=== PATIENT | male | born 1995 | race Hispanic/Latino ===

== ENCOUNTER 2018-01-31 23:57 | Emergency (ER) | payer OTHER ==
[~2018-01-31] VITALS: Ht 167.6 cm; Wt 56.7 kg
[2018-01-31 23:57] VITALS: BP 118/61
[2018-02-01 00:41] LABS: BILIRUBIN,URINE NEGATIVE (NEGATIVE); UROBILINOGEN,URINE NORMAL (NEGATIVE)
[2018-02-01 00:41] LABS: BASOPHIL % 0.3 % (0.0-0.2); EOSINOPHIL % 0.5 % (0.0-5.0); HEMOGLOBIN 13.5 g/dL (13.9-16.3); LYMPHOCYTES # 1.8 10^3/uL (1.0-4.8); LYMPHOCYTES % 30.6 % (24.0-44.0); MEAN CELL HGB 30.7 pg (26-34); MEAN CELL HGB CONCENTRATION 34.1 g/dL (33-37); MEAN PLATELET VOLUME 10.6 fL (7.8-11.0); MONOCYTES # 0.6 10^3/uL (0.3-0.8); MONOCYTES % 10.9 % (5.0-12.0); NEUTROPHIL # 3.4 10^3/uL (1.8-7.7); NEUTROPHILS % 57.4 % (41.0-85.0); RED CELL DISTRIBUTION WIDTH 11.9 % (11.5-14.5); WHITE BLOOD CELL 5.9 10^3/uL (4.5-11.0)
--- NOTE | 2018-02-01 00:44 | ER.PDOC ---
General Chief Complaint: Requesting Medical Care Stated Complaint: ALCOHOL INTOXICATION Time seen by MD: 00:40 Source: family Exam Limitations: clinical condition, intoxication History of Present Illness Initial Comments etoh tonite,fell,no loc Occurred: just prior to arrival Where: home Severity: mild Injuries/Pain Location: head Context: Unknown Loss of Consciousness: No Loss of Consciousness Allergies: Coded Allergies: No Known Allergies (Unverified , 02/01/18) Past Medical History Medical History: no pertinent history Surgical History: no surgical history Family History Significant Family History: no pertinent family hx Review of Systems Constitutional: no symptoms reported Eyes: no symptoms reported Ears, Nose, Mouth, Throat: no symptoms reported Respiratory: no symptoms reported Cardiovascular: no symptoms reported Gastrointestinal: no symptoms reported Musculoskeletal: no symptoms reported Physical Exam General Appearance: No Apparent Distress, WD/WN, Lethargic Head: No Evidence of Injury Ears, Nose, Mouth, Throat: Hearing Grossly Normal Neck: Non-Tender Cardiovascular/Respiratory: Regular Rate, Rhythm Gastrointestinal: Normal Bowel Sounds Back: Normal Inspection Extremities: No Evidence of Injury Neurologic/Psychiatric: cloth bale header II-XII NML as Tested, No Motor/Sensory Deficits, Other (drunk) Skin: Normal Color Momo Coma Score Best Eye Response: (4) Open Spontaneously Best Verbal Response: (4) Confused Conversation Best Motor Response: (6) Obeys Commands Results/Orders Results/Orders Laboratory Tests Test 02/01/18 00:10 02/01/18 00:35 Urine Collection Type VOID Urine Color YELLOW (YELLOW) Urine Appearance CLEAR (CLEAR) Urine Bilirubin NEGATIVE MG/DL (NEGATIVE) Urine Ketones NEGATIVE (NEGATIVE) Urine Specific [place] 1.005 (1.005-1.035) Urine pH 6.5 (5.0-6.0) Urine Protein NEGATIVE (NEGATIVE) Urine Urobilinogen NORMAL (NEGATIVE) Urine Nitrate NEGATIVE (NEGATAIVE) Urine Leukocyte Esterase NEGATIVE (NEGATIVE) Urine Blood NEGATIVE (NEGATIVE) Urine Glucose NORMAL (NEGATIVE) Urine Opiates, Qualitative NEGATIVE ng/mL (CUT-OFF:300) Urine Methadone, Qualitative NEGATIVE ng/mL (CUT-OFF:300) Urine Amphetamine Qualitative NEGATIVE ng/mL (CUTOFF:1000) Urine Barbiturates, Qualitative NEGATIVE ng/mL (CUT-OFF:200) Urine Phencyclidine Screen NEGATIVE ng/mL (CUT-OFF:25) Urine MDMA (Ecstasy), Qualitative NEGATIVE ng/mL (CUT-OFF:300) Urine Benzodiazepines Screen NEGATIVE ng/mL (CUT-OFF:200) Urine Cocaine Qualitative NEGATIVE ng/mL (CUT-OFF:300) Ur Tetrahydrocannabinol (THC) Scrn NEGATIVE ng/mL (CUT-OFF:50) White Blood Count 5.9 10^3/uL (4.5-11.0) Red Blood Count 4.40 10^6/uL (4.50-5.90) Hemoglobin 13.5 g/dL (13.9-16.3) Hematocrit 39.6 % (37.0-53.0) Mean Corpuscular Volume 90.0 fL (78-100) Mean Corpuscular Hemoglobin 30.7 pg (26-34) Mean Corpuscular Hemoglobin Concent 34.1 g/dL (33-37) Red Cell Distribution Width 11.9 % (11.5-14.5) Platelet Count 242 10^3/uL (150-400) Mean Platelet Volume 10.6 fL (7.8-11.0) Neutrophils (%) (Auto) 57.4 % (41.0-85.0) Lymphocytes (%) (Auto) 30.6 % (24.0-44.0) Monocytes (%) (Auto) 10.9 % (5.0-12.0) Neutrophils # (Auto) 3.4 10^3/uL (1.8-7.7) Lymphocytes # (Auto) 1.8 10^3/uL (1.0-4.8) Monocytes # (Auto) 0.6 10^3/uL (0.3-0.8) Absolute Immature Granulocyte (auto 0.02 10^3 u/L (0-2) Eosinophils % 0.5 % (0.0-5.0) Basophils % 0.3 % (0.0-0.2) Basophils # 0.0 10^3/uL (0.0-0.1) Eosinophil Count 0.0 10^3/uL (0.0-0.2) Sodium Level 147 mmol/L (132-145) Potassium Level 4.2 mmol/L (3.6-5.2) Chloride Level 111.0 mmol/L (96-109) Carbon Dioxide Level 25.8 mmol/L (20.0-32) Anion Gap 14.4 Blood Urea Nitrogen 8 mg/dL (7-18) Creatinine 0.84 mg/dL (0.59-1.40) Estimated GFR () 139.6 (>/=60) BUN/Creatinine Ratio 9.0 Glucose Level 102 mg/dL (70-110) Calcium Level 8.1 mg/dL (8.4-10.5) Total Bilirubin 0.3 mg/dL (0.2-1.0) Aspartate Amino Transf (AST/SGOT) 18 U/L (0-35) Alanine Aminotransferase (ALT/SGPT) 27 U/L (12-78) Alkaline Phosphatase 105 U/L (50-136) Total Protein 7.1 g/dL (6.4-8.2) Albumin 3.9 g/dL (3.4-5.0) Globulin 3.2 Salicylates Level < 2.8 mg/dL (2.8-20.0) Acetaminophen Level < 2 ug/mL (10-30) Serum Alcohol 222 mg/dL (3-50) Percent Immature Gran (Cell Imm) 0.30 % (0.00-0.50) Administered Medications Medications (Trade) Dose Ordered Sig/Lisa Route PRN Reason Start Time Stop Time Status Last Admin Dose Admin Sodium Chloride 1,000 ml @ 100 mls/hr Q10H ONCE IV 02/01/18 01:00 02/01/18 10:59 02/01/18 01:25 Departure Time of Disposition: 01:41 Disposition: 01 HOME, SELF-CARE Impression: Primary Impression: Alcohol abuse Condition: Improved Referrals: PCP,UNKNOWN (PCP) PRIMARY CARE PROVIDER Duration or Time Spent with Pa: 45 BESSY GRAY MD Feb 01, 2018 00:44
[2018-02-01 00:45] VITALS: BP 146/87
--- NOTE | 2018-02-01 00:45 | NUR ---
RADIOLOGY NOTIFIED TIFFANIE SALEEM, OF ORDERS FOR CT C-SPINE
[2018-02-01 00:48] LABS: APPEARANCE,URINE CLEAR (CLEAR); UA COLOR YELLOW (YELLOW)
[2018-02-01] MEDS ORDERED: NS 1000ML 1,000 ML IV ONE (01:00)
[2018-02-01 01:14] LABS: ALANINE AMINOTRANSFERASE(ML) 27 U/L (12-78); ALKALINE PHOSPHATASE 105 U/L (50-136); ASPARTATE AMINO TRANSFERASE 18 U/L (0-35); CALCIUM 8.1 mg/dL (8.4-10.5); CARBON DIOXIDE 25.8 mmol/L (20.0-32); GLUCOSE 102 mg/dL (70-110)
--- NOTE | 2018-02-01 01:15 | DIREP ---
PROCEDURE:CT MAXILLOFACIAL W/O CONTRAST COMPARISON:None. INDICATIONS:FALL TECHNIQUE:Axial CT images were created without intravenous contrast. Sagittal and coronal reformatted images are provided. FINDINGS: ORBITS:The globe is intact. No extraocular muscle entrapment is identified. No orbital wall fracture is identified. FACIAL BONES:No fracture. NASAL BONES :No fracture MAXILLA/MANDIBLE:Periapical lucencies surrounding left maxillary incisor as well as left mandibular molar suggest periodontal disease. SINUSES:No air fluid level is seen. No mucosal thickening. Surrounding bone structures are intact. SOFT TISSUES:No significant hematoma. Question soft tissue swelling overlying the midline mandible.. CONCLUSION: 1. No facial fracture seen. 2. Findings suggesting periodontal disease. 3. Questionable soft tissue swelling overlying the midline mandible, correlate with site of injury. Dictated by: Nathanael Harris M.D. on 02/01/2018 at 01:10 AM
--- NOTE | 2018-02-01 01:17 | DIREP ---
PROCEDURE:CT HEAD OR BRAIN W/O CONTRAST COMPARISON:None. INDICATIONS:FALL TECHNIQUE:CT images were created without intravenous contrast. FINDINGS: VENTRICLES:The ventricles are normal in size and configuration. CEREBRUM:Normal cerebral morphology with appropriate marte white matter differentiation. CEREBELLUM:Negative. BRAINSTEM:Negative. BASAL CISTERNS:Negative. HEMORRHAGE:No MASS LESION:No ACUTE INFARCT:No SKULL:Normal. SINUSES:Normal. OTHER:None CONCLUSION:No acute intracranial abnormality. Negative head CT. Dictated by: Nathanael Harris M.D. on 02/01/2018 at 01:13 AM
[2018-02-01 01:45] VITALS: BP 113/50
--- NOTE | 2018-02-01 02:05 | DIREP ---
PROCEDURE: CT SPINE CERVICAL W/O COMPARISON:None. INDICATIONS:FALL FINDINGS: ALIGNMENT:Normal. VERTEBRAE:Irregularity to the infra clear endplate of C6 likely developmental or chronic, configuration would be unusual for acute fracture. PARASPINAL AREA:Normal. OTHER:No additional findings. CERVICAL DISC LEVELS C2-C3:Normal. C3-C4:Normal. C4-C5:Normal. C5-C6:Normal. C6-C7:Disc bulge contributing to mild central canal stenosis. C7-T1:Normal. CONCLUSION: 1. No acute fracture or subluxation demonstrated. 2. Irregularity of inferior endplate C6 may be degenerative as there is associated disc bulge at this level contributing to mild central canal stenosis. Dictated by: Nathanael Harris M.D. on 02/01/2018 at 01:59 AM
[2018-02-01 02:25] VITALS: BP 113/50
== END 2018-02-01 02:19 | disposition home or self-care (01) ==
LOC: ER 23:57
DX: F10.10 Alcohol abuse, uncomplicated (principal); Y90.8 Blood alcohol level of 240 mg/100 ml or more; W19.XXXA Unspecified fall, initial encounter; Y93.89 Activity, other specified; Y92.89 Other specified places as the place of occurrence of the external cause; Y99.8 Other external cause status
CPT/HCPCS: 36415; 70450; 70486; 72125; 80053; 80299; 80307; 81002; 85025; 99284; G0481; G0482; G0483

== ENCOUNTER 2020-08-29 02:00 | Inpatient (IN) | payer OTHER ==
[2020-08-29] VITALS (24 sets, daily range): BP systolic 118–160; BP diastolic 70–93
[~2020-08-29] VITALS: Ht 167.6 cm; Wt 51.5 kg
--- NOTE | 2020-08-29 02:00 | NUR ---
On arrival, patient has an 18 gauge IV to left AC, NS bolus infusing.
--- NOTE | 2020-08-29 02:00 | NUR ---
Patient presents to ED via EMS for C/O altered mental status. EMS state "family called to report patient was possibly drunk and had drugs in his system. Patient was somewhat calm and when we got 5 minutes from the house he started acting different, getting physically combative, we then gave him 4 mg of Zofran and proceeded to intubate patient." Patient received 200 mg Ketamine, 5 mg Versed, 10 mg Vecuronium, 100 mg Fentanyl.
[2020-08-29] MEDS ORDERED: NS 1000ML 1,000 ML STA (02:05)
--- NOTE | 2020-08-29 02:15 | NUR ---
NS bolus completed from EMS transport.
--- NOTE | 2020-08-29 02:15 | NUR ---
16 Vietnamese NG placed in patient's right nare, placement confirmed with auscultation and verified by X-ray.
[2020-08-29] MEDS ORDERED: NS 50ML 50 ML IV ONE (02:16)
[2020-08-29] MEDS ORDERED: NS 1000ML 1,000 ML ONE (02:21)
[2020-08-29 02:23] LABS: BASOPHIL % 0.6 % (0.0-0.2); EOSINOPHIL # 0.1 10^3/uL (0.0-0.2); EOSINOPHIL % 1.2 % (0.0-5.0); LYMPHOCYTES # 2.09 10^3/uL1 (1.0-4.8); LYMPHOCYTES % 40.8 % (24.0-44.0); MEAN CORP HGB 30.4 pg (26-34); MONOCYTES # 0.4 10^3/uL (0.3-0.8); MONOCYTES % 6.8 % (5.0-12.0); NEUTROPHIL # 2.6 10^3/uL (1.8-7.7); NEUTROPHILS % 50.4 % (41.0-85.0); PLATELET COUNT 207 10^3/uL (150-400); RED CELL DISTRIBUTION WIDTH 11.6 % (11.5-14.5)
[2020-08-29] MEDS ORDERED: VERSED IV ONE (02:30)
[2020-08-29] MEDS ORDERED: NS IV ONE (02:30)
--- NOTE | 2020-08-29 02:31 | NUR ---
RN was able to initiate 18g IV to R forearm. Pt presented with IV to L forearm. RN was able to initiate jon catheter. Blood samples and urine were collected and sent to lab. [facility]
[2020-08-29 02:46] LABS: BILIRUBIN,URINE NEGATIVE (NEGATIVE); UA COLOR YELLOW
[2020-08-29 02:47] LABS: UROBILINOGEN,URINE 0.2 E.U./dL (0.2)
[2020-08-29 02:48] LABS: ALANINE AMINOTRANSFERASE(ML) 27 U/L (12-78); ALKALINE PHOSPHATASE 106 U/L (50-136); ASPARTATE AMINO TRANSFERASE 23 U/L (0-35); CALCIUM 7.6 mg/dL (8.4-10.5); CARBON DIOXIDE 20.9 mmol/L (20.0-32); GLUCOSE 120 mg/dL (70-110)
--- NOTE | 2020-08-29 02:48 | DIREP ---
PROCEDURE:CHEST 1 VIEW COMPARISON:None. INDICATIONS:check ett FINDINGS: LUNGS/PLEURA:Endotracheal tube terminates approximately 4 cm from the alicia. No focal consolidation, pleural effusion, or pneumothorax is seen. VASCULATURE:Normal. Unremarkable pulmonary vasculature. CARDIAC:Normal. No cardiac silhouette abnormality or cardiomegaly. MEDIASTINUM:Normal. No visible mass or adenopathy. BONES:Normal. No fracture or visible bony lesion. OTHER:OG tube with tip and side hole projecting over the left upper quadrant of the abdomen. Overlying EKG leads. CONCLUSION: Support tubes and catheters in satisfactory position. No acute cardiopulmonary process is identified. Dictated by: Derick Becker M.D. On 08/29/2020 at 02:45 AM
--- NOTE | 2020-08-29 03:02 | DIREP ---
PROCEDURE:CT HEAD OR BRAIN W/O CONTRAST COMPARISON:[facility], CT, CT HEAD BRAIN W/O CONTRAST, 02/01/2018, 00:19 AM. INDICATIONS:AMS TECHNIQUE:CT images were created without intravenous contrast. FINDINGS: VENTRICLES:The ventricles are normal in size and configuration. CEREBRUM:Normal cerebral morphology with appropriate marte white matter differentiation. CEREBELLUM:Negative. BRAINSTEM:Negative. BASAL CISTERNS:Negative. HEMORRHAGE:No MASS LESION:No ACUTE INFARCT:No SKULL:Normal. SINUSES:Mild mucosal thickening in the ethmoid air cells. No air-fluid level. OTHER:None CONCLUSION:No acute intracranial abnormality or significant interval change. Dictated by: Derick Becker M.D. on 08/29/2020 at 02:59 AM
--- NOTE | 2020-08-29 03:16 | ER.PDOC ---
General Chief Complaint: Altered Mental Status Stated Complaint: INTOXICATED Time seen by MD: 02:10 Source: EMS Exam Limitations: clinical condition History of Present Illness Initial Comments 25 Y M no PMH, intubated by EMS after call out for drunken beligerence Allergies: Coded Allergies: No Known Allergies (Unverified , 02/01/18) Home Meds No Active Prescriptions or Reported Meds Past Medical History Medical History: no pertinent history Surgical History: no surgical history Social History Alcohol Use: heavy Drug Use: Meth Review of Systems All Other Systems: Reviewed and Negative Physical Exam General Appearance: obtunded HEENT: no apparent trauma, no nystagmus, PERRL, ENT inspection nml, pharynx nml, other (intubated) Neck: supple, non-tender, no carotid bruit Respiratory: breath sounds nml CVS: reg rate & rhythm, heart sounds nml Abdomen: no distention Skin: color nml, no rash, warm/dry Extremities: non-tender, nml ROM, no pedal edema Comments exam limited due to clinical condition Results/Orders Results/Orders Orders - COLLIN RENDON MD Cbc With Auto Diff (08/29/20 02:05) Comprehensive Metabolic Panel (08/29/20 02:05) PT (08/29/20 02:05) Xr Chest 1v (08/29/20 02:05) Ct Head Wo Contrast (08/29/20 02:05) Urinalysis (08/29/20 02:05) Ekg-Routine (08/29/20 02:05) Troponin I (08/29/20 02:05) 0.9 % Sodium Chloride (Ns 1000ml) (08/29/20 02:05) Midazolam Hcl (Versed) (08/29/20 02:30) Alcohol(Ml) (08/29/20 02:05) 0.9 % Sodium Chloride (Ns 50ml) (08/29/20 02:16) 0.9 % Sodium Chloride (Ns 1000ml) (08/29/20 02:21) Arterial Blood Gas (08/29/20 02:30) Drug Scrn Med W Confirmation (08/29/20 02:30) Restraint(S) Ordered (08/29/20 03:26) Vital Signs Date Time Temp Pulse Resp B/P (MAP) Pulse Ox O2 Delivery O2 Flow Rate FiO2 08/29/20 03:10 76 12 156/88 (110) 100 08/29/20 02:08 76 12 99 08/29/20 02:08 76 12 118/71 (87) 99 08/29/20 02:08 76 12 Administered Medications Medications (Trade) Dose Ordered Sig/Lisa Route PRN Reason Start Time Stop Time Status Last Admin Dose Admin Midazolam HCl 50 mg/Sodium Chloride 50 ml @ 0 mls/hr ONCE IV 08/29/20 02:30 08/29/20 02:57 DC 08/29/20 02:27 5 MLS/HR Sodium Chloride 1,000 ml @ 0 mls/hr Q0M STAT IV 08/29/20 02:05 08/29/20 02:11 DC 08/29/20 02:27 1,000 MLS/HR Laboratory Tests Test 08/29/20 02:10 White Blood Count 5.1 10^3/uL (4.5-11.0) Red Blood Count 4.44 10^6/uL (4.50-5.90) L Hemoglobin 13.5 g/dL (13.9-16.3) L Hematocrit 39.4 % (37.0-53.0) Mean Corpuscular Volume 88.7 fL (78-100) Mean Corpuscular Hemoglobin 30.4 pg (26-34) Mean Corpuscular Hemoglobin Concent 34.3 g/dL (33-36.5) Red Cell Distribution Width 11.6 % (11.5-14.5) Platelet Count 207 10^3/uL (150-400) Mean Platelet Volume 10.6 fL (7.8-11.0) Neutrophils (%) (Auto) 50.4 % (41.0-85.0) Lymphocytes (%) (Auto) 40.8 % (24.0-44.0) Monocytes (%) (Auto) 6.8 % (5.0-12.0) Neutrophils # (Auto) 2.6 10^3/uL (1.8-7.7) Lymphocytes # (Auto) 2.09 10^3/uL1 (1.0-4.8) Monocytes # (Auto) 0.4 10^3/uL (0.3-0.8) Absolute Immature Granulocyte (auto 0.01 10^3 u/L (0-2) Absolute Eosinophils (auto) 0.1 10^3/uL (0.0-0.2) Immature Granulocytes % 0.20 % (0.00-0.50) Eosinophils % 1.2 % (0.0-5.0) Basophils % 0.6 % (0.0-0.2) H Basophils # 0.0 10^3/uL (0.0-0.1) Prothrombin Time 10.5 SEC (9.6-12.0) Prothrombin Time INR (Non-Therap) 1.0 Urine Collection Type CCMS Urine Color YELLOW Urine Appearance CLEAR Urine Bilirubin NEGATIVE (NEGATIVE) Urine Ketones NEGATIVE (NEGATIVE) Urine Specific [place] 1.010 (1.005-1.030) Urine pH 5.5 (4.5-8.0) Urine Protein NEGATIVE (NEGATIVE) Urine Urobilinogen 0.2 E.U./dL (0.2) Urine Nitrate NEGATIVE (NEGATIVE) Urine Leukocyte Esterase NEGATIVE (NEGATIVE) Urine Glucose (Auto)(UA) NEGATIVE (NEGATIVE) Urine Blood MODERATE (NEGATIVE) H Urine RBC 0-2 RBC/HPF (NONE SEEN) Urine WBC NONE SEEN WBC/HPF (0-2) Urine Squamous Epithelial Cells FEW #/HPF (FEW) Urine Bacteria RARE (NONE SEEN) Sodium Level 148 mmol/L (132-145) H Potassium Level 3.2 mmol/L (3.6-5.2) L Chloride Level 114.0 mmol/L (96-109) H Carbon Dioxide Level 20.9 mmol/L (20.0-32) Anion Gap 16.3 Blood Urea Nitrogen 11 mg/dL (7-18) Creatinine 0.93 mg/dL (0.59-1.40) Estimated GFR () 120.8 (>/=60) Est GFR (CKD-EPI)(Non-Afr Singaporean) 99.8 (>/=60) BUN/Creatinine Ratio 11.0 Glucose Level 120 mg/dL (70-110) H Calcium Level 7.6 mg/dL (8.4-10.5) L Total Bilirubin 0.2 mg/dL (0.2-1.0) Aspartate Amino Transferase (AST) 23 U/L (0-35) Alanine Aminotransferase (ALT) 27 U/L (12-78) Alkaline Phosphatase 106 U/L (50-136) Troponin I < 0.02 ng/mL (0.00-0.05) Total Protein 7.2 g/dL (6.4-8.2) Albumin 4.1 g/dL (3.4-5.0) Globulin 3.1 Albumin/Globulin Ratio 1.322 Urine Opiates Screen NEGATIVE (c/o300ng/mL) Urine Methadone Screen NEGATIVE (c/o300ng/mL) Urine Barbiturates Screen NEGATIVE (c/o200ng/mL) Urine Phencyclidine Screen NEGATIVE (c/o 25ng/mL) Ur Amphetamine/Methamphetamine NEGATIVE ([id number]/mL) Urine MDMA Screen (Ecstasy) NEGATIVE (c/o300ng/mL) Urine Benzodiazepines Screen PRESUMPTIVE POSITIVE Urine Cocaine Metabolite Screen NEGATIVE (c/o300ng/mL) Ur Tetrahydrocannabinol (THC) Scrn PRESUMPTIVE POSITIVE (c/o Serum Alcohol 246 mg/dL (0-50) H EKG/XRAY/CT/US EKG: NSR, SC, QRS, no ST T wave changes XRAY: chest XRAY Comments: ETT appropriate depth ER DEPART Departure Time of Disposition: 04:19 Disposition: 09 ADMITTED INPATIENT Impression: Primary Impression: Alcohol intoxication Condition: Improved Referrals: PCP,UNKNOWN (PCP) PRIMARY CARE PROVIDER Scripts No Active Prescriptions or Reported Meds Duration or Time Spent with Pa: 40m Critical Care Note Comments We checked his ETT placement, started sedation, managed his vent settings, gave IVF for resusciation 35 min COLLIN RENDON MD Aug 29, 2020 03:16
--- NOTE | 2020-08-29 03:29 | PCM.EKG ---
[facility] Test Date: 2020-08-29 Test Time: 03:21:06 Pat Name: ULYSSES PANCHAL Department: Patient ID: [id number] Room: Gender: M Director Of Advertising Sales: ITA : 1995 Requested By: COLLIN RENDON Order Number: [id number] Reading MD: Measurements Intervals [place] Rate: 73 P: 15 UT: 158 QRS: 82 QRSD: 103 T: 62 QT: 405 QTc: 447 Interpretive Statements Sinus rhythm ST elev, probable normal early repol pattern No previous ECG available for comparison Please click the below link to view image of tracing.
--- NOTE | 2020-08-29 03:55 | NUR ---
N2N given to Mague LEOS.
--- NOTE | 2020-08-29 04:16 | NUR ---
Lazaro RN was called to verify the order placed by Dr. Kunz regarding propofol. Propofol was drawn from [facility] by this RN and initiated by Thor Pascual Supervisor prior to pt leaving the ED.
[2020-08-29] MEDS: DIPRIVAN IV PRN ×2 (04:30→08:19)
[2020-08-29 05:23] LABS: ABG PCO2 43.5 mmHg (35.0-45.0); ABG PH 7.255 (7.350-7.450); HCO3act 18.9 mmol/L (22.0-26.0); pO2 241.1 mmHg (80.0-100.0)
[2020-08-29] MEDS ORDERED: ZOFRAN ONE (09:49)
[2020-08-29] MEDS ORDERED: ZOFRAN IV STA (09:59)
--- NOTE | 2020-08-29 10:08 | NUR ---
AMA Pt requesting to leave against medical advice stating "I hate hospitals get me the f out of here." Educated pt on importance of staying to get monitored, pt declined. Dr. Kunz notified. AMA form signed at this time. Pt ambulated off unit. No s/s of distress noted.
--- NOTE | 2020-08-29 11:36 | PCM.HP ---
History of Present Illness Hx of Present Illness 25 Y M no PMH, intubated by EMS after call out for drunken belligerence work up in the ER positive for benzodiazepines, cannabis, and EtOH. negative for acetaminophen and otherwise unremarkable accepted to the ICU for extubation in the AM when patient passes SBT PROCEDURE:CHEST 1 VIEW COMPARISON:None. INDICATIONS:check ett CONCLUSION: Support tubes and catheters in satisfactory position. No acute cardiopulmonary process is identified. PROCEDURE:CT HEAD OR BRAIN W/O CONTRAST COMPARISON:[facility], CT, CT HEAD BRAIN W/O CONTRAST, 02/01/2018, 00:19 AM. INDICATIONS:AMS CONCLUSION:No acute intracranial abnormality or significant interval change. Travel History EBOLA RISK:Travel to/contact w: No Review of Systems Constitutional: No: Fever, Chills, Sweats, Weakness, Malaise, Other Eyes: No: Pain, Vision change, Conjunctivae inflammation, Eyelid inflammation, Other, Redness ENT: No: Ear pain, Ear discharge, Nose pain, Nose discharge, Nose congestion, Mouth pain, Mouth swelling, Throat pain, Throat swelling, Other Respiratory: No: Cough, Dry, Shortness of breath, SOB with excertion, Wheezing, Hemoptysis, Pleuritic Pain, Sputum, Wheezing, Other Cardiovascular: No: Chest Pain, Palpitations, Orthopnea, Paroxysmal Noc. Dyspnea, Edema, Lt Headedness, Other Gastrointestinal: No: Nausea, Vomiting, Abdominal Pain, Diarrhea, Constipation, Melena, Hematochezia, Other Genitourinary: No Dysuria, No Frequency, No Incontinence, No Hematuria, No Retention, No Other Musculoskeletal: No: other, neck pain, shoulder pain, arm pain, back pain, hand pain, leg pain, foot pain Skin: No: Rash, Lesions, Jaundice, Bruising, Other Neurological: No: Weakness, Numbness, Incoordination, Change in speech, Confusion, Seizures, Other Other Limited by intubation and sedation, obtained by EMS, family and medical record Allergies: Coded Allergies: No Known Allergies (Unverified , 02/01/18) No Active Prescriptions or Reported Meds VTE VTE Risk Total Score: 5 VTE Risk Score VTE Risk: Score 0-1 = Low Risk (Aggressive mobilization; early ambulation; no VTE prophylaxis required) Score 2: Moderate Risk (Intermittent/Pneumatic Compression Device OR Lovenox/Heparin/Coumadin) Score 3-4: High Risk (Intermittent/Pneumatic Compression Device AND Lovenox/Heparin/Coumadin) Score > or =5: Highest Risk (Intermittent/Pneumatic Compression Device AND Lovenox/Heparin/Coumadin) Mechanical device ordered: Yes VTE VTE Present on Admission: No Currently receiving anticoagul: No VTE Risk Total Score: 5 Exam Vital Signs Vital Signs Date Time Temp Pulse Resp B/P (MAP) Pulse Ox O2 Delivery O2 Flow Rate FiO2 08/29/20 10:27 84 16 100 21 08/29/20 10:08 Room Air 08/29/20 10:00 129/70 (89) 08/29/20 08:45 98.4 General Appearance: Other (Intubated and sedated) HEENT: Atraumatic, PERRLA Respiratory: Clear to auscultation, Normal air movement Cardiovascular: Regular rate Abdominal: Normal bowel sounds, Soft, No tenderness Skin: No rash, No breakdown Neuro: Normal tone, Sensation intact Psych/Mental Status: Other (intubated and sedated) Assessment/Plan Assessment/Plan Assessment/Plan 25-year-old male with no significant past medical history who presented with alcohol intoxication and was combative with EMS when they were called to the scene alcohol level is in the 200s and he was intubated for severe intoxication with combativeness with EMS he is accepted to the ICU for extubation in the a.m. when appropriate Severe alcohol intoxication: Currently intubated and sedated will allow alcohol to clear his system and then perform spontaneous breathing trial Endotracheal intubation: We will wean sedation in the a.m. for spontaneous breathing trial and extubate Prophylaxis SCDs Full code WINNIE GOLDBERG MD Aug 29, 2020 11:36
--- NOTE | 2020-08-29 11:40 | NUR ---
Extubation Dr. Kunz, this nurse, Edith RT and Td Lau RN at this side for extubation. Pt extubated at this time. Pt on room air, O2 sat- 100%.
--- NOTE | 2020-08-29 22:58 | PRM.DC ---
Discharge Summary Date of Discharge: Aug 29, 2020 Time of Request to Discharge: 11:11 Hospital Course 25 Y M no PMH, intubated by EMS after call out for drunken belligerence work up in the ER positive for benzodiazepines, cannabis, and EtOH. negative for acetaminophen and otherwise unremarkable accepted to the ICU for extubation in the AM when patient passes SBT PROCEDURE:CHEST 1 VIEW COMPARISON:None. INDICATIONS:check ett CONCLUSION: Support tubes and catheters in satisfactory position. No acute cardiopulmonary process is identified. PROCEDURE:CT HEAD OR BRAIN W/O CONTRAST COMPARISON:[facility], CT, CT HEAD BRAIN W/O CONTRAST, 02/01/2018, 00:19 AM. INDICATIONS:AMS CONCLUSION:No acute intracranial abnormality or significant interval change. Patient was successfully weaned off the ventilator and passed successful breathing trial in the morning after alcohol cleared his system immediately after extubation he demanded to leave despite warnings of potential adverse consequences he continued to demand to leave immediately rather than wait a few hours of observation after extubation he has medical decision-making capacity and signed AMA form taken home by sister and significant other General: Alert, Oriented X3, No acute distress HEENT: Atraumatic, PERRLA Lungs: Clear to auscultation, Normal air movement Heart: Regular rate Abdomen: Soft, No tenderness Extremities: No clubbing, No cyanosis Skin: No rashes, No breakdown Neuro: Normal gait, Normal speech, Strength at 5/5 X4 ext, Normal tone, Sensation intact, Cranial nerves 3-12 NL Psych/Mental Status: Mental status NL, Other (Mood is dysphoric) No Active Prescriptions or Reported Meds Sepsis Evaluation @ Discharge Course Duration or Total Time Spent w: 40m Vitals & review Data Vital Sign - Last 24 Hours 08/29/20 08/29/20 08/29/20 08/29/20 02:00 02:08 02:08 02:08 Pulse 87 76 76 76 Resp 18 12 12 12 B/P (MAP) 118/71 (87) Pulse Ox 99 99 99 FiO2 40 08/29/20 08/29/20 08/29/20 08/29/20 03:10 03:35 04:00 04:30 Temp 96.3 Pulse 76 87 81 81 Resp 12 18 12 16 B/P (MAP) 156/88 (110) 153/70 (97) 142/84 (103) Pulse Ox 100 100 100 100 O2 Delivery Vent FiO2 40 08/29/20 08/29/20 08/29/20 08/29/20 04:30 04:30 04:30 04:30 Pulse 81 Resp 19 16 Pulse Ox 100 100 O2 Delivery Mechanical Ventilator Mechanical Ventilator FiO2 28 28 08/29/20 08/29/20 08/29/20 08/29/20 04:45 05:00 05:15 05:30 Pulse 76 77 78 76 B/P (MAP) 124/72 (89) 129/79 (96) 136/75 (95) 140/87 (104) Pulse Ox 100 100 100 100 08/29/20 08/29/20 08/29/20 08/29/20 05:45 06:00 06:42 07:00 Temp 97.6 Pulse 74 75 84 B/P (MAP) 138/89 (105) 131/81 (98) 129/76 (93) Pulse Ox 100 100 99 08/29/20 08/29/20 08/29/20 08/29/20 07:15 07:30 07:45 08:00 Pulse 84 84 84 82 B/P (MAP) 126/80 (95) 129/79 (96) 129/76 (93) 132/75 (94) Pulse Ox 99 99 98 99 08/29/20 08/29/20 08/29/20 08/29/20 08:15 08:30 08:45 09:00 Temp 98.4 Pulse 86 86 94 81 B/P (MAP) 128/76 (93) 144/93 (110) 160/76 (104) 127/73 (91) Pulse Ox 98 100 100 99 08/29/20 08/29/20 08/29/20 08/29/20 09:15 09:20 09:31 09:45 Pulse 84 80 89 81 Resp 20 B/P (MAP) 123/76 (92) 151/90 (110) 125/81 (96) Pulse Ox 98 99 100 100 FiO2 28 08/29/20 08/29/20 08/29/20 08/29/20 09:46 10:00 10:08 10:27 Pulse 81 77 77 84 Resp 20 16 16 B/P (MAP) 129/70 (89) Pulse Ox 100 100 100 100 O2 Delivery Room Air FiO2 28 21 Intake and Output 08/29/20 07:00 Output Total 750 ml Balance -750 ml Laboratory Tests Test 08/29/20 02:10 08/29/20 03:11 White Blood Count 5.1 10^3/uL Red Blood Count 4.44 10^6/uL Hemoglobin 13.5 g/dL Hematocrit 39.4 % Mean Corpuscular Volume 88.7 fL Mean Corpuscular Hemoglobin 30.4 pg Mean Corpuscular Hemoglobin Concent 34.3 g/dL Red Cell Distribution Width 11.6 % Platelet Count 207 10^3/uL Mean Platelet Volume 10.6 fL Neutrophils (%) (Auto) 50.4 % Lymphocytes (%) (Auto) 40.8 % Monocytes (%) (Auto) 6.8 % Neutrophils # (Auto) 2.6 10^3/uL Lymphocytes # (Auto) 2.09 10^3/uL1 Monocytes # (Auto) 0.4 10^3/uL Absolute Immature Granulocyte (auto 0.01 10^3 u/L Absolute Eosinophils (auto) 0.1 10^3/uL Immature Granulocytes % 0.20 % Eosinophils % 1.2 % Basophils % 0.6 % Basophils # 0.0 10^3/uL Prothrombin Time 10.5 SEC Prothrombin Time INR (Non-Therap) 1.0 Urine Collection Type CCMS Urine Color YELLOW Urine Appearance CLEAR Urine Bilirubin NEGATIVE Urine Ketones NEGATIVE Urine Specific Procious 1.010 Urine pH 5.5 Urine Protein NEGATIVE Urine Urobilinogen 0.2 E.U./dL Urine Nitrate NEGATIVE Urine Leukocyte Esterase NEGATIVE Urine Glucose (Auto)(UA) NEGATIVE Urine Blood MODERATE Urine RBC 0-2 RBC/HPF Urine WBC NONE SEEN WBC/HPF Urine Squamous Epithelial Cells FEW #/HPF Urine Bacteria RARE Sodium Level 148 mmol/L Potassium Level 3.2 mmol/L Chloride Level 114.0 mmol/L Carbon Dioxide Level 20.9 mmol/L Anion Gap 16.3 Blood Urea Nitrogen 11 mg/dL Creatinine 0.93 mg/dL Estimated GFR () 120.8 Est GFR (CKD-EPI)(Non-Afr Taiwanese) 99.8 BUN/Creatinine Ratio 11.0 Glucose Level 120 mg/dL Calcium Level 7.6 mg/dL Total Bilirubin 0.2 mg/dL Aspartate Amino Transf (AST/SGOT) 23 U/L Alanine Aminotransferase (ALT/SGPT) 27 U/L Alkaline Phosphatase 106 U/L Troponin I < 0.02 ng/mL Total Protein 7.2 g/dL Albumin 4.1 g/dL Globulin 3.1 Albumin/Globulin Ratio 1.322 Urine Opiates Screen NEGATIVE Urine Methadone Screen NEGATIVE Acetaminophen Level < 3 ug/mL Urine Barbiturates Screen NEGATIVE Urine Phencyclidine Screen NEGATIVE Ur Amphetamine/Methamphetamine NEGATIVE Urine MDMA Screen (Ecstasy) NEGATIVE Urine Benzodiazepines Screen PRESUMPTIVE POSITIVE Urine Cocaine Metabolite Screen NEGATIVE Ur Tetrahydrocannabinol (THC) Scrn PRESUMPTIVE POSITIVE Serum Alcohol 246 mg/dL Blood Gas Sample Site RT BRACIAL ARTERY Blood Gas pH 7.255 Blood Gas PCO2 43.5 mmHg Blood Gas PO2 241.1 mmHg Blood Gas HCO3 18.9 mmol/L Blood Gas Base Excess -8.0 mmol/L Claudy Test N/A Arterial Blood Oxygen Saturation 99.0 % Deoxyhemoglobin 1.0 % Carboxyhemoglobin 0.3 % Methemoglobin 0.4 % Total Hemoglobin 14.7 % Total Oxygen Concentration 20.8 % FiO2 40 % Blood Gas PEEP 5.0 CMH2O Total Carbon Dioxide 20.2 mmol/L O2 Sat by Pulse Oximetry: 100 Plan Assessment 25-year-old male with no significant past medical history who presented with alcohol intoxication and was combative with EMS when they were called to the scene alcohol level is in the 200s and he was intubated for severe intoxication with combativeness with EMS he is accepted to the ICU for extubation in the a.m. when appropriate Severe alcohol intoxication: Currently intubated and sedated will allow alcohol to clear his system and then perform spontaneous breathing trial Endotracheal intubation: We will wean sedation in the a.m. for spontaneous breathing trial and extubate Prophylaxis SCDs Full code Patient successfully passed spontaneous breathing trial and minutes after extubation started to demand that he be allowed to go home risks of leaving immediately were discussed with the patient and despite this he demanded to leave prior to postextubation observation he signed the AMA form and left with his sister and her significant other WINNIE GOLDBERG MD Aug 29, 2020 22:58
== END 2020-08-29 10:08 | disposition left against medical advice (07) | DRG 894 ==
LOC: EDBD 02:00 → ER 02:00 → MS 03:43
PROVIDERS: ADMIT Family Medicine; ATTEND Family Medicine
PROC: 0BH17EZ Insertion of Endotracheal Airway into Trachea, Via Natural or Artificial Opening (ICD-10-PCS; principal; 2020-08-29)
PROC: 5A1935Z Respiratory Ventilation, Less than 24 Consecutive Hours (ICD-10-PCS; 2020-08-29)
DX: F10.129 Alcohol abuse with intoxication, unspecified (principal); F39 Unspecified mood [affective] disorder; Y90.7 Blood alcohol level of 200-239 mg/100 ml; Z53.29 Procedure and treatment not carried out because of patient's decision for other reasons
CPT/HCPCS: 36415; 70450; 71045; 80053; 80299; 80307; 80346; 81001; 82077; 82803; 84484; 85025; 85610; 93005; 94002; 99291; G0378; J2405; J7030